=== PATIENT | male | born 1985 | race Caucasian/White ===

== ENCOUNTER 2024-10-14 09:26 | Inpatient (IN) | payer OTHER ==
[~2024-10-14] VITALS: Ht 180.3 cm; Wt 102.7 kg
[~2024-10-14 09:26] MED LIST: NKHM
[2024-10-14 09:48] VITALS: BP 127/80
[2024-10-14] MEDS ORDERED: SODIUM CHLORIDE 0.9% 1,000 ML IV ONE ×2 (09:55→12:50)
[2024-10-14] MEDS ORDERED: Vancomycin Hydrochloride 250 ML IV ONE (09:55)
[2024-10-14] MEDS ORDERED: Piperacillin Sodium/Tazobact 50 ML IV ONE (09:55)
[2024-10-14 10:15] LABS: BASO % 0.3 % (0.0-1.0); EOS # 0.1 10*3/uL (0.0-0.4); EOS % 0.8 % (1.0-4.0); HEMATOCRIT 48.1 % (42.0-52.0); MEAN CELL VOLUME 89.6 fl (80.0-94.0); MEAN CORPUSCULAR HGB 30.4 pg (27.0-31.0); MEAN CORPUSCULAR HGB CONC 33.9 g/dl (33.0-37.0); MEAN PLATELET VOLUME 8.5 fl (9.6-12.3); MONO # 1.1 10*3/uL (0.1-1.0); MONO % 7.5 % (3.0-9.0); NEUT # 10.7 10*3/uL (2.3-7.9); NEUT % 73.8 % (47.0-73.0); PLATELET COUNT AUTOMATED 286 10*3/uL (130-400); RED BLOOD COUNT 5.37 10*6/uL (4.50-5.90); RED CELL DISTRI WIDTH 12.3 % (0-14.5); WHITE BLOOD COUNT 14.5 10*3/uL (4.8-10.8)
[2024-10-14 10:35] LABS: BUN 8 mg/dl (9-23); CHLORIDE 96 mmol/L (98-107); POTASSIUM 4.2 mmol/L (3.4-5.1)
[2024-10-14] MEDS ORDERED: BISACODYL 5 MG TAB PO PRN (12:15)
[2024-10-14] MEDS ORDERED: ACETAMINOPHEN 325 MG TAB PO PRN (12:15)
[2024-10-14] MEDS ORDERED: ACETAMINOPHEN 650 MG SUPP R PRN (12:15)
[2024-10-14] MEDS ORDERED: BISACODYL 10 MG SUPP R PRN (12:15)
[2024-10-14] MEDS ORDERED: TEMAZEPAM 15 MG CAP PO PRN (12:15)
[2024-10-14] MEDS ORDERED: Magnesium Hydroxide 30 ML UDC PO PRN (12:15)
[2024-10-14] MEDS ORDERED: Ondansetron Hydrochloride 4 MG/2 ML VIAL IV PRN (12:15)
[2024-10-14] MEDS ORDERED: DEXTROSE 10 % IN WATER 250 ML IV PRN (12:25)
[2024-10-14] MEDS ORDERED: Piperacillin Sodium/Tazobact 50 ML IV SCH (16:00)
[2024-10-14] MEDS ORDERED: INSULIN LISPRO 1 UNIT/0.01 ML SQ SCH (16:30)
[2024-10-14 16:36] VITALS: BP 121/82
[2024-10-14] MEDS ORDERED: VANCOMYCIN/WATER FOR INJ (PEG) 300 ML IV SCH (18:00)
[2024-10-14 21:45] VITALS: BP 132/88
[2024-10-15] VITALS: BP 121/81
[2024-10-15] MEDS ORDERED: Pantoprazole Sodium 40 MG TAB PO SCH (06:00)
[2024-10-15 06:41] LABS: BASO % 0.2 % (0.0-1.0); EOS # 0.1 10*3/uL (0.0-0.4); EOS % 1.1 % (1.0-4.0); HEMATOCRIT 44.2 % (42.0-52.0); MEAN CELL VOLUME 90.9 fl (80.0-94.0); MEAN CORPUSCULAR HGB 30.5 pg (27.0-31.0); MEAN CORPUSCULAR HGB CONC 33.5 g/dl (33.0-37.0); MEAN PLATELET VOLUME 8.7 fl (9.6-12.3); NEUT % 72.2 % (47.0-73.0); PLATELET COUNT AUTOMATED 260 10*3/uL (130-400); RED BLOOD COUNT 4.86 10*6/uL (4.50-5.90); RED CELL DISTRI WIDTH 12.2 % (0-14.5); WHITE BLOOD COUNT 12.5 10*3/uL (4.8-10.8)
[2024-10-15 06:46] LABS: ACT PARTIAL THROMBO TIME 31.3 SECONDS (20.0-32.1)
[2024-10-15 07:18] LABS: ALKALINE PHOSPHATASE 131 U/L (46-116); BUN 6 mg/dl (9-23); CHLORIDE 100 mmol/L (98-107); CHOLESTEROL 178 mg/dL (<200); FREE T4 1.15 ng/dl (0.89-1.76); LDL CHOLESTEROL 110 mg/dL (9-159); SGPT/ALT 15 U/L (5-49); TOTAL PROTEIN 7.2 gm/dL (6.0-8.0); TRIGLYCERIDES 154 mg/dl (<150)
[2024-10-15 08:00] VITALS: BP 127/81
[2024-10-15 08:14] LABS: VITAMIN D, 25-HYDROXY 12.2 ng/mL (30-100)
[2024-10-15] MEDS ORDERED: Insulin Glargine, Recombinan 1 UNIT/0.01 ML SC SCH (08:25)
[2024-10-15] MEDS ORDERED: Cholecalciferol 5,000 IU CAP (125 MCG) PO SCH (10:00)
[2024-10-15] MEDS ORDERED: Enoxaparin Sodium 40 MG/0.4 ML SYR SC SCH (10:00)
[2024-10-15] MEDS ORDERED: VANCOMYCIN/WATER FOR INJ (PEG) 400 ML IV SCH (10:15)
[2024-10-15] MEDS ORDERED: ATORVASTATIN CALCIUM 80 MG TAB PO SCH (11:10)
[2024-10-15 12:00] VITALS: BP 122/77
[2024-10-15 16:00] VITALS: BP 102/57
[2024-10-15 20:00] VITALS: BP 128/87
[2024-10-16] VITALS: BP 118/81
[2024-10-16 06:39] LABS: BASO % 0.3 % (0.0-1.0); EOS # 0.2 10*3/uL (0.0-0.4); EOS % 1.9 % (1.0-4.0); HEMATOCRIT 44.5 % (42.0-52.0); MEAN CELL VOLUME 90.1 fl (80.0-94.0); MEAN CORPUSCULAR HGB 30.2 pg (27.0-31.0); MEAN CORPUSCULAR HGB CONC 33.5 g/dl (33.0-37.0); MEAN PLATELET VOLUME 8.3 fl (9.6-12.3); MONO # 0.7 10*3/uL (0.1-1.0); MONO % 7.3 % (3.0-9.0); NEUT # 6.5 10*3/uL (2.3-7.9); NEUT % 66.5 % (47.0-73.0); PLATELET COUNT AUTOMATED 264 10*3/uL (130-400); RED BLOOD COUNT 4.94 10*6/uL (4.50-5.90); RED CELL DISTRI WIDTH 12.1 % (0-14.5); WHITE BLOOD COUNT 9.8 10*3/uL (4.8-10.8)
[2024-10-16 07:20] LABS: BUN 9 mg/dl (9-23); CHLORIDE 101 mmol/L (98-107); POTASSIUM 4.2 mmol/L (3.4-5.1)
[2024-10-16 08:00] VITALS: BP 124/85
[2024-10-16 12:00] VITALS: BP 125/77
[2024-10-16] MEDS ORDERED: CEPHALEXIN500 M1 PO (13:25)
[2024-10-16] MEDS ORDERED: LIPITOR40 MG PO (13:25)
[2024-10-16] MEDS ORDERED: METFORMIN HCL500 M2 PO (13:25)
[2024-10-16] MEDS ORDERED: LANTUS SOL100 UNIT/1 SC (13:25)
[2024-10-16] MEDS ORDERED: SEPTDS PO (13:25)
== END 2024-10-16 14:30 | disposition home or self-care (01) | DRG 872 ==
LOC: ED 09:26 → 4E 10:51 → EDHOLD 10:51 → 4E 21:41
PROVIDERS: Emergency Medicine; ADMIT Internal Medicine; ATTEND Internal Medicine
DX: A41.9 Sepsis, unspecified organism (principal); E87.1 Hypo-osmolality and hyponatremia; L03.811 Cellulitis of head [any part, except face]; F41.9 Anxiety disorder, unspecified; E11.65 Type 2 diabetes mellitus with hyperglycemia; E78.1 Pure hyperglyceridemia; E55.9 Vitamin D deficiency, unspecified; R74.8 Abnormal levels of other serum enzymes; Z83.3 Family history of diabetes mellitus; Z78.9 Other specified health status; Z80.1 Family history of malignant neoplasm of trachea, bronchus and lung